=== PATIENT | male | born 1995 | race Caucasian/White ===

== ENCOUNTER 2016-11-13 16:22 | Emergency (ER) | payer BC ==
[2016-11-13 16:27] VITALS: RESP 18; TEMP 97.5
[2016-11-13] MEDS ORDERED: SODIUM CHLORIDE 0.9% 1,000 ML IV STA (16:29)
[2016-11-13] MEDS ORDERED: MORPHINE SULFATE 4 MG/ML SYRINGE IV STA (16:44)
[2016-11-13] MEDS ORDERED: RX INFO: IV CONTRAST WAS GIVEN 1 EACH MISC MISCELLANE PRN (16:44)
--- NOTE | 2016-11-13 16:47 | ED ---
General Adult HPI - General Chief complaint: Abdominal Pain Stated complaint: Abd Pain Time Seen by Provider: 11/13/16 16:29 Source: patient, RN notes reviewed Mode of arrival: ambulatory Limitations: no limitations - History of Present Illness Initial comments: Patient is a pleasant 21-year-old male presenting to the emergency department complaining of abdominal discomfort. Symptoms started 2 days ago. Symptoms were somewhat worse yesterday. Discomfort is right side of the abdomen. No nausea or vomiting. No constipation or diarrhea. No history of similar symptoms previously. Symptoms are worse with walking up steps and movement/ bumps in the car ride. No fevers. No loss of appetite. No change of symptoms with oral intake. No testicle pain or swelling or color change. - Related Data Home Medications Medication Instructions Recorded Confirmed Omeprazole 20 mg PO DAILY 11/13/16 11/13/16 Previous Rx's Medication Instructions Recorded Dicyclomine [Bentyl] 20 mg PO QID #12 tablet 11/13/16 Allergies Allergy/AdvReac Type Severity Reaction Status Date / Time No Known Allergies Allergy Verified 11/13/16 16:32 Review of Systems ROS Statement: Those systems with pertinent positive or pertinent negative responses have been documented in the HPI. ROS Other: All systems not noted in ROS Statement are negative. Constitutional: Denies: fever Eyes: Denies: eye pain ENT: Denies: ear pain Respiratory: Denies: cough Cardiovascular: Denies: chest pain Endocrine: Denies: fatigue Gastrointestinal: Reports: abdominal pain. Denies: nausea, vomiting Genitourinary: Denies: dysuria, hematuria Musculoskeletal: Denies: back pain Skin: Denies: rash Neurological: Denies: weakness Past Medical History Past Medical History: No Reported History History of Any Multi-Drug Resistant Organisms: None Reported Past Surgical History: No Surgical Hx Reported Past Psychological History: No Psychological Hx Reported Smoking Status: Current every day smoker Past Alcohol Use History: Occasional Past Drug Use History: Marijuana General Exam Limitations: no limitations General appearance: alert, in no apparent distress Head exam: Present: normocephalic Eye exam: Present: normal appearance, PERRL ENT exam: Present: normal oropharynx Neck exam: Present: normal inspection Respiratory exam: Present: normal lung sounds bilaterally Cardiovascular Exam: Present: regular rate, normal rhythm Expanded Peripheral pulses: 2+: Dorsalis Pedis (R), Dorsalis Pedis (L) GI/Abdominal exam: Present: soft, tenderness (Moderate tenderness entire right side of the abdomen.), normal bowel sounds. Absent: distended, guarding, rebound, rigid, pulsatile mass Extremities exam: Present: normal inspection. Absent: pedal edema, calf tenderness Back exam: Present: normal inspection. Absent: CVA tenderness (R) Neurological exam: Present: alert Psychiatric exam: Present: normal affect, normal mood Skin exam: Present: normal color Course Vital Signs 11/13/16 16:25 Temperature 97.5 F L Pulse Rate 92 Respiratory 18 Rate Blood Pressure 114/91 O2 Sat by Pulse 99 Oximetry Medical Decision Making - Medical Decision Making Patient reevaluated and resting comfortably in bed. Patient updated on results and need for follow-up. Patient advised to have his kidney test recheck in the next week or 2. - Lab Data Result diagrams: 11/13/16 16:56 11/13/16 16:56 Lab Results 11/13/16 11/13/16 11/13/16 Range/Units 16:56 16:56 16:56 WBC 7.0 (3.8-10.6) k/uL RBC 4.74 (4.30-5.90) m/uL Hgb 14.7 (13.0-17.5) gm/dL Hct 43.8 (39.0-53.0) % MCV 92.3 (80.0-100.0) fL MCH 31.0 (25.0-35.0) pg MCHC 33.5 (31.0-37.0) g/dL RDW 12.8 (11.5-15.5) % Plt Count 215 (150-450) k/uL Neutrophils % 66 % Lymphocytes % 24 % Monocytes % 6 % Eosinophils % 2 % Basophils % 0 % Neutrophils # 4.7 (1.3-7.7) k/uL Lymphocytes # 1.7 (1.0-4.8) k/uL Monocytes # 0.5 (0-1.0) k/uL Eosinophils # 0.1 (0-0.7) k/uL Basophils # 0.0 (0-0.2) k/uL PT 11.0 (9.0-12.0) sec INR 1.1 (<1.2) APTT 25.7 (22.0-30.0) sec Sodium 141 (137-145) mmol/L Potassium 4.1 (3.5-5.1) mmol/L Chloride 104 (98-107) mmol/L Carbon Dioxide 25 (22-30) mmol/L Anion Gap 12 mmol/L BUN 25 H (9-20) mg/dL Creatinine 1.28 H (0.66-1.25) mg/dL Est GFR (MDRD) Af Amer >60 (>60 ml/min/1.73 sqM) Est GFR (MDRD) Non-Af >60 (>60 ml/min/1.73 sqM) Glucose 95 (74-99) mg/dL Calcium 9.6 (8.4-10.2) mg/dL Total Bilirubin 0.6 (0.2-1.3) mg/dL AST 19 (17-59) U/L ALT 30 (21-72) U/L Alkaline Phosphatase 60 (38-126) U/L Total Protein 7.5 (6.3-8.2) g/dL Albumin 4.6 (3.5-5.0) g/dL Amylase 34 (30-110) U/L Lipase 69 (23-300) U/L - Radiology Data Radiology results: image reviewed (Computed tomography scan of the abdomen and pelvis reveals no acute process.) Disposition Clinical Impression: Abdominal pain Disposition: HOME SELF-CARE Condition: Stable Instructions: Abdominal Pain (ED) Additional Instructions: Please follow-up to in the next day or 2 for recheck. Return for fever, increased pain, vomiting, worsening symptoms or other concerns. Over-the- counter Pepcid. Please have your primary care physician recheck your kidney test within the next week or 2. Prescriptions: Dicyclomine [Bentyl] 20 mg PO QID #12 tablet Referrals: Anam Gray Jr, [Primary Care Provider] - 1-2 days Time of Disposition: 18:13
[2016-11-13 17:10] LABS: Basophils % (A) 0 %; CH 32.8; CHCM 35.7; Eosinophils # (A) 0.1 k/uL (0-0.7); Eosinophils % (A) 2 %; HCT 43.8 % (39.0-53.0); HDW 2.55; HGB 14.7 gm/dL (13.0-17.5); Luc # (Auto) 0.09; Luc % (Auto) 1; Lymphocytes # (A) 1.7 k/uL (1.0-4.8); Lymphocytes % (A) 24 %; MCHC 33.5 g/dL (31.0-37.0); MCV 92.3 fL (80.0-100.0); Mean Platelet Volume 7.7; Monocytes # (A) 0.5 k/uL (0-1.0); Monocytes % (A) 6 %; Neutrophils # (A) 4.7 k/uL (1.3-7.7); Neutrophils % (A) 66 %; RBC 4.74 m/uL (4.30-5.90); RDW 12.8 % (11.5-15.5)
[2016-11-13 17:20] LABS: INR 1.1 (<1.2); Partial Thromboplastin Time 25.7 sec (22.0-30.0)
[2016-11-13 17:22] LABS: ALT 30 U/L (21-72); AST 19 U/L (17-59); Alkaline Phosphatase 60 U/L (38-126); Amylase 34 U/L (30-110); Anion Gap 12 mmol/L; Blood Urea Nitrogen 25 mg/dL (9-20); Calcium 9.6 mg/dL (8.4-10.2); Carbon Dioxide 25 mmol/L (22-30); Chloride 104 mmol/L (98-107); Glucose 95 mg/dL (74-99); Non-African American GFR(MDRD) >60 (>60 ml/min/1.73 sqM); Potassium 4.1 mmol/L (3.5-5.1); Sodium 141 mmol/L (137-145); Total Bilirubin 0.6 mg/dL (0.2-1.3); Total Protein 7.5 g/dL (6.3-8.2)
--- NOTE | 2016-11-13 17:58 | CT ---
EXAMINATION TYPE: CT abdomen pelvis w con DATE OF EXAM: 11/13/2016 COMPARISON: NONE HISTORY: RLQ pain for [address] DLP: 474.3 mGycm Automated exposure control for dose reduction was used. TECHNIQUE: Helical acquisition of images was performed from the lung bases through the pelvis. CONTRAST: Performed without Oral Contrast and with IV Contrast, patient injected with 100 mL of Omnipaque 300. FINDINGS: Lung bases are clear. There is no pleural effusion. Heart size is normal. Liver spleen pancreas gallbladder appear normal. Bile ducts are not dilated. There is no adrenal mass. Kidneys show satisfactory contrast opacification. There is no hydronephrosi s. I see no intestinal wall thickening. There are no dilated loops. Bladder distends smoothly. There is no sign of a pelvic mass. There is no ascites. There is no sign of appendicitis. There is air in the appendix. I see no bony destructive process. IMPRESSION: NEGATIVE CT SCAN OF THE ABDOMEN AND PELVIS. NO SIGN OF APPENDICITIS.
[2016-11-13 18:34] VITALS: BP 110/89; PULSE 88
== END 2016-11-13 18:34 | disposition home or self-care (01) ==
LOC: EC 16:22
DX: R10.9 Unspecified abdominal pain (principal); F17.200 Nicotine dependence, unspecified, uncomplicated; Z79.899 Other long term (current) drug therapy
CPT/HCPCS: 36415; 80053; 82150; 83690; 85025; 85610; 85730; 74177; 99284; 96374; 96361; J2270; Q9967